=== PATIENT | female | born 1965 | race Caucasian/White ===

== ENCOUNTER 2016-09-16 18:17 | Emergency (ER) | payer BC ==
[2016-09-16 17:37] LABS: URINE SOURCE CLEAN CATCH
[2016-09-16 17:42] LABS: URINE APPEARANCE CLEAR; URINE BILIRUBIN NEG (NEG); URINE BLOOD NEG (NEG); URINE COLOR YELLOW; URINE GLUCOSE NEG (NEG); URINE KETONE NEG (NEG); URINE LEUKOCYTE ESTERASE 2+ (NEG); URINE NITRATE NEG (NEG); URINE PH 6.5 (5-8); URINE PROTEIN NEG (NEG); URINE UROBILINOGEN 0.2 MG/DL (NEG)
[2016-09-16 17:45] LABS: CULTURE INDICATED? YES; URINE BACTERIA AUWI NEG (NEGATIVE); URINE SQUAMOUS EPITHELIAL CELL FEW /[HPF]
[2016-09-16 17:51] LABS: URINE MUCUS PRESENT
[~2016-09-16 18:17] MED LIST: BACTRIM DS TABL1 TA1; BACTRIM DS TABL1 TA1 PO; FLEXERIL PO; IBUPROFEN600 MG PO; KLONOPIN PO; METOPROLOL TART25 MG PO; OMEPRAZOLE20 M2 PO; PREDNISONE PO; PYRIDIUM PO; TAMOXIFEN10 MG PO
== END 2016-09-16 18:46 | disposition home or self-care (01) ==
LOC: CED 18:17
DX: S76.011A Strain of muscle, fascia and tendon of right hip, initial encounter (principal); I10 Essential (primary) hypertension; K21.9 Gastro-esophageal reflux disease without esophagitis; X58.XXXA Exposure to other specified factors, initial encounter
CPT/HCPCS: 81003; 84703; 87086; 99283

== ENCOUNTER → 2017-02-22 | Outpatient (CLI) | payer BC ==
--- NOTE | ~2017-02-22 | MY28 ---
[facility] A Service of [facility] RADIOLOGY TEXT RESULTS PATIENT: KAMILLE SOLIS LOCATION: [facility] : 61 UNIT #: [id number] AGE: [address]: Maxime Hines MD SEX: F ORDER DR: [id number] [facility]. [place], [place] [address] [id number] MR#: [id number] Acc #: [id number] NAME: KAMILLE SOLIS : 1965 SEX: F STUDY DATE/TIME: 02/22/2017 10:47 UNIT: [facility] ROOM: STUDY DESCRIPTION: MY SHIRLEY SCREEN W/ CAD UNI RT Attending Physician: Maxime Hines M.D. Referring Physician: Maxime Hines M.D. Ordering Physician: Maxime Hines M.D. Primary Care Physician: Delbert Friedman M.D. MEDICAL IMAGING REPORT This report is preliminary unless electronic signature is present EXAM Right digital screening mammogram with CAD COMPARISON 02/15/2016, 01/14/2015,12/09/2013, 02/08/2012 INDICATIONS Breast cancer screening. 51-year-old asymptomatic female with history of left mastectomy for breast cancer in 2012. FINDINGS Right breast tissues are extremely dense which may lower the sensitivity of mammography. Please note that a CC view cannot be performed as the patient has severe scoliosis. No suspicious findings are seen in the right breast. IMPRESSION 1. Post left mastectomy for breast cancer. 2. There is no mammographic evidence of malignancy in the right breast. However, CC view cannot be performed due to the patient's scoliosis. Also, given the breast density, this likely lowers sensitivity of conventional mammography. Consideration of annual screening breast tomosynthesis is recommend which has increased breast cancer detection rate and diminished false positive rate as compared to conventional 2-D mammography. This could be performed at [facility]. Patient's over the age of 40 are entered into a reminder system with target due date for the next mammogram. A result letter will be sent to the patient. BIRADS: 2 Benign findings. [facility] A Service of [facility] RADIOLOGY TEXT RESULTS PATIENT: KAMILLE SOLIS LOCATION: [facility] : 61 UNIT #: [id number] AGE: [address]: Maxime Hines MD SEX: F ORDER DR: Dictated by... José Miguel Angelo M.D. THIS IS AN ELECTRONICALLY VERIFIED REPORT José Miguel Angelo M.D. at 02/22/2017 11:09 PM BLM/to TD: 02/22/2017 22:05 JOB #: [id number] MEDICAL IMAGING REPORT Page 1 of 1 COPY
== END | disposition home or self-care (01) ==
LOC: CWCC 02-17 07:30
DX: Z12.31 Encounter for screening mammogram for malignant neoplasm of breast (principal); Z85.3 Personal history of malignant neoplasm of breast; Z90.12 Acquired absence of left breast and nipple
CPT/HCPCS: G0202